=== PATIENT | female | born 1995 | race American Indian/Alaskan Native ===

== ENCOUNTER 2021-05-23 16:27 | Emergency (ER) | payer SELFPAY ==
[2021-05-23 16:35] VITALS: BP 147/96
--- NOTE | 2021-05-23 18:21 | Emergency Department Report ---
ED HPI - General Chief complaint: Urogenital-Female Stated complaint: VAG BLEED (8WKS PREG) Time Seen by Provider: 05/23/21 17:30 Source: patient, EMS Mode of arrival: Ambulatory Limitations: No Limitations - History of Present Illness Initial comments: 25-year-old female presents to the ER today with complaints of vaginal bleeding. Patient states that this past Friday she went to [facility] because she was having lots of nausea and vomiting. During her ER visit she found out she was . She states that they did ultrasound, and told her that she was about 8 weeks . Patient states that she thinks her last menstrual cycle was towards the end of February 2021. This is her first . 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 She states that she did use 2 pads this morning. She states that the bleeding has since slowed down. She denies any clots or any abdominal cramping or any back pain. She states that she has an appointment to establish for care this coming Friday. Complaint: vaginal bleeding -: days(s) (1) - Related Data Allergies Allergy/AdvReac Type Severity Reaction Status Date / Time No Known Allergies Allergy Verified 05/23/21 16:35 ED Review of Systems ROS: Stated complaint: VAG BLEED (8WKS PREG) Other details as noted in HPI Comment: All other systems reviewed and negative Constitutional: denies: chills, fever Eyes: denies: eye pain, eye discharge, vision change ENT: denies: ear pain, throat pain, dental pain, hearing loss, epistaxis, congestion Respiratory: denies: cough, shortness of breath, SOB with exertion, SOB at rest, wheezing Cardiovascular: denies: chest pain, palpitations Endocrine: no symptoms reported Gastrointestinal: denies: abdominal pain, nausea, vomiting, diarrhea, constipation, hematemesis, hematochezia Genitourinary: other (Abnormal vaginal bleeding, 8 weeks ). denies: urgency, dysuria, frequency, hematuria, discharge Musculoskeletal: denies: back pain, joint swelling, arthralgia Skin: denies: rash, lesions, change in color, change in hair/nails, pruritus Neurological: denies: headache, weakness, numbness, paresthesias, confusion, abnormal gait Psychiatric: denies: anxiety, depression, auditory hallucinations, visual hallucinations, homicidal thoughts, suicidal thoughts Hematological/Lymphatic: denies: easy bleeding, easy bruising, swollen glands ED Past Medical Hx - Past Medical History Hx Asthma: Yes ED Physical Exam - General Limitations: No Limitations General appearance: alert, in no apparent distress - Head Head exam: Present: atraumatic, normocephalic, normal inspection - Eye Eye exam: Present: normal appearance, PERRL, EOMI Pupils: Present: normal accommodation - Neck Neck exam: Present: normal inspection, full ROM - Respiratory Respiratory exam: Present: normal lung sounds bilaterally. Absent: respiratory distress, wheezes, rales, rhonchi, stridor - Cardiovascular Cardiovascular Exam: Present: regular rate, normal rhythm, normal heart sounds - GI/Abdominal GI/Abdominal exam: Present: soft. Absent: distended, tenderness, guarding, rebound - Neurological Exam Neurological exam: Present: alert, oriented X3, CN II-XII intact, normal gait - Psychiatric Psychiatric exam: Present: normal affect, normal mood - Skin Skin exam: Present: intact ED Course Vital Signs 05/23/21 05/23/21 16:34 18:49 Temperature 98.8 F Pulse Rate 103 H Respiratory 18 18 Rate Blood Pressure 147/96 [Right] O2 Sat by Pulse 99 98 Oximetry ED Medical Decision Making - Lab Data Result diagrams: 05/23/21 18:32 05/23/21 18:32 - Medical Decision Making 2000: I was informed by nursing staff that patient eloped from the ER. They report that patient told him that she cannot wait because her ride was outside and left without waiting to have me notified or to sign AMA. Critical care attestation.: If time is entered above; I have spent that time in minutes in the direct care of this critically ill patient, excluding procedure time. ED Disposition Clinical Impression: Threatened miscarriage Disposition: 07 LEFT AWOL/ELOPED Is pt being admited?: No Condition: Stable Referrals: PRIMARY CARE, [Primary Care Provider] - 3-5 Days
[2021-05-23 19:04] LABS: Blood Urea Nitrogen 6 mg/dL (7-17); Calcium 9.9 mg/dL (8.4-10.2); Hemolysis Index 27
[2021-05-23 19:05] LABS: Basophils # (Auto) 0.1 K/mm3 (0.0-0.1); Basophils % (Auto) 0.6 % (0.0-1.8); Eosinophils # (Auto) 0.1 K/mm3 (0.0-0.4); Eosinophils % (Auto) 0.4 % (0.0-4.3); Hematocrit 36.1 % (30.3-42.9); Hemoglobin 12.7 gm/dl (10.1-14.3); Lymphocytes # (Auto) 3.4 K/mm3 (1.2-5.4); Lymphocytes % (Auto) 29.3 % (13.4-35.0); Mean Corpuscular HGB Conc 35 % (30-34); Mean Corpuscular Volume 82 fl (79-97); Monocytes # (Auto) 0.8 K/mm3 (0.0-0.8); Monocytes % (Auto) 7.3 % (0.0-7.3); Platelet Count 278 K/mm3 (140-440); Red Blood Count 4.39 M/mm3 (3.65-5.03); Red Cell Distribution Width 16.8 % (13.2-15.2)
[2021-05-23 19:07] LABS: BUN/Creatinine Ratio 15
== END 2021-05-23 19:30 | disposition left against medical advice (07) ==
LOC: ED 16:27
DX: O20.0 Threatened abortion (principal); O99.519 Diseases of the respiratory system complicating pregnancy, unspecified trimester; J45.909 Unspecified asthma, uncomplicated; Z3A.08 8 weeks gestation of pregnancy
CPT/HCPCS: 36415; 80048; 84702; 85025; 86900; 86901; 99283

== ENCOUNTER 2021-11-29 21:14 | Outpatient (CLI) | payer SELFPAY ==
[2021-11-30 00:25] VITALS: BP 110/72
--- NOTE | 2021-11-30 01:31 | Ultrasound Report ---
US OB transvaginal INDICATION / CLINICAL INFORMATION: abd pain COMPARISON: None available. TECHNIQUE: Using an endovaginal probe, a single image of the uterine cervix was captured and stored. FINDINGS: The endocervical canal measures approximately 2.9 cm. The internal os demonstrates minimal funneling. IMPRESSION: 1. Minimal funneling of the internal os. Endocervical canal measures approximately 2.9 cm. Signer Name: Yan Shannon II, MD Signed: 11/30/2021 1:27 AM Workstation Name: [id number]
== END 2021-11-30 00:50 | disposition home or self-care (01) ==
LOC: TRG 21:14 → APU 21:15 → TRG 11-30 00:50
PROVIDERS: ATTEND Obstetrics & Gynecology Gynecology
DX: O47.03 False labor before 37 completed weeks of gestation, third trimester (principal); Z3A.34 34 weeks gestation of pregnancy
CPT/HCPCS: 59025; 76817